=== PATIENT | female | born 1975 | race Caucasian/White ===

== ENCOUNTER 2021-03-09 06:38 | Outpatient (CLI) | payer OTHER | END 2021-03-09 15:00 | disposition home or self-care (01) | LOC: EDBD 06:38 → LAB 06:38 | PROVIDERS: ATTEND Obstetrics & Gynecology | DX: Z20.818 Contact with and (suspected) exposure to other bacterial communicable diseases (principal); Z20.828 Contact with and (suspected) exposure to other viral communicable diseases ==